=== PATIENT | male | born 1945 | race Caucasian/White ===

== ENCOUNTER 2019-02-02 08:00 | Day surgery (SDC) | payer MEDICARE, SELFPAY ==
[2018-09-20 11:37] VITALS: BMI 26.4
[2019-02-02 08:21] VITALS: BP 138/80; PULSE 86; RESP 16; TEMP 35.9; O2SAT 94; BMI 24.7
[2019-02-02] MEDS: Lactated Ringers 1,000 ML 100 ML IV (08:37)
--- NOTE | 2019-02-02 09:05 | H&P.OPEN ---
History of Present Illness Date of Admission: 02/02/19 The patient is a 73 year old M who presents for a colonoscopy. Patient had his last colonoscopy by Dr. Fitzpatrick in 2010. He was noted to have polyps at that time and it was recommended that he have a repeat colonoscopy in 5 years. He is 3 years overdue. He is not having any abdominal pains. He is moving his bowels without difficulty. Past Medical/Surgical History - Planned Operation Planned Operative Procedure/s: COLONOSCOPY Date of Operative Procedure: 02/02/19 Permit Signed: Yes S.O.S: No Is This Patient Having a Total Joint: No - Previous Hospitalizations/Surgeries HX Hospitalizations: No HX of Surgeries: 2006 PROSTATECTOMY. APPENDECTOMY. CRISTIAN CATARACTS Any Problems With Anesthesia: No You/Your Family Experience Fever (Hyperthermia) With Anes: No Cholinesterase deficiency: No - Cardiovascular Hx Chest Pain within Last 2 months: No Hx of Irregular Heartbeat and/or Afib: No Hx Heart Attack: No Hx Congestive Heart Failure: No Hx Rheumatic Fever: No Hx Hypertension: No Hx Internal Defibrillator: No Hx Pacemaker: No Hx Cardiac Catheterization: No Hx Cardiac Surgery/Stents/Etc.: No Hx Stress Test: No HX Edema: No Hx Pain in Legs when Walking/Leg Cramps: No - Respiratory Chronic Cough: No HX of Shortness of Breath: No Hoarseness: No Hx Chronic Obstructive Pulmonary Disease (COPD): No Hx Asthma: No Hx Emphysema: No Hx Sleep Apnea: No Hx Oxygen Use at Home: No Hx Respiratory Tract Infection/Cold (presently): No Do You Snore Loudly (louder than talking or can be heard): No Do You Often Feel Tired/ Fatigued/ Sleepy Dring Daytime?: No Has Anyone Observed You Stop Breathing During Sleep?: No Result (for STOP score): Negative Hx Smoking: No Smoking Status: Never smoker - Gastrointestinal Hx Gastroesophageal Reflux: Yes Controlled With Meds: Yes - PREVACID PRN Hx Gastrointestinal Disorders: No Hx Gastrointestinal Bleed: No Hx Ulcer: No Hx Hiatal Hernia: No Difficulty Chewing/Swallowing: No Recent Onset of Swallowing Problems: No Special diet followed at home: No Hx Unplanned Weight Loss of 20#: No HX Unplanned Weight Gain of 20#: No - Neurological Hx Seizures: No HX Syncope/Blackout Spells/Unconsciousness: No Hx CVA/Stroke: No Hx Transient Ischemic Attacks (TIA): No Hx Multiple Sclerosis: No Hx Parkinson's Disease: No Hx Head/Neck Injury: No Hx Headaches: No Hx Back Injury/Pain: Yes Recent Onset of Speech Difficulty: No Restless Legs: No Does patient have nerve stimulator: No - Blood Disorder Hx Leukemia: No Bleeding Tendencies: No Hx Deep Vein Thrombosis: No Hx High Cholesterol: No Blood Transmitted Disease: No Hx Hepatitis: No Hx Cirrhosis: No Hx Anemia: No Hx Blood Disorders: No - Genitourinary Hx Renal Disease: Yes - KIDNEY STONES - Musculoskeletal Hx Arthritis: Yes Hx Rheumatoid Arthritis: No Hx Gout: No Recent Onset of an Orthopedic Problem: No - Endocrine Hx Diabetes: No Thyroid Disease: No Hx Steroid Therapy: No - Psycho/Social Hx Substance Use: No Hx Alcohol Use: No Hx Anxiety: No Hx Depression: No Mental Illness: No Hx Dementia: No - Miscellaneous Hx Cancer: Yes - PROSTATE Recent Exposure to Contagious Disease: No Active MRSA: No Hx of C-Diff: No Any Loose Teeth: Yes - UPPER DENTURES Additional information pertinent to anesthesia:: HAS A HARD TIME HOLDING BLADDER Allergies No Known Allergies Allergy (Verified 02/01/19 11:29) - Discharge Is Pt Admitted From a Care Home, or a Retirement: No Who Could Help: [facility] After D/C, Where Do you Plan to Go: Return Home - From the PAT History Number of Risk Factors: 3 - Physical Exam General: Alert, Oriented x3 Lungs: Clear to auscultation Cardiovascular: Regular rate, Regular Rhythm, No murmurs Abdomen: Bowel Sounds Present, Soft, Non Tender, Non-Distended Vital Signs Temp Pulse Resp BP Pulse Ox 96.6 F L 86 16 138/80 H 94 02/02/19 08:21 02/02/19 08:21 02/02/19 08:21 02/02/19 08:21 02/02/19 08:21 Oxygen Delivery Method Room Air Weight: 162 lb 14.746 oz Body Mass Index (BMI) 24.7 Assessment/Plan Plan will be to perform a colonoscopy. Surgery Risks - Colonoscopy Risks Include but are not Limited To: Risks include but are not limited to: Bleeding, perforation requiring further surgery, inability to complete colonoscopy requiring barium enema.
[2019-02-02 09:30] VITALS: BP 103/73; BP 138/80; PULSE 89; RESP 18; TEMP 36.8; O2SAT 94
--- NOTE | 2019-02-02 09:30 | OP.ENDO_ITS ---
02/02/2019 Jose Carlos Lemus [address] [place] [address] Re : Colonoscopy procedure for Jonathan Barragan Dear Dr. Lemus This procedure was performed on Saturday, February 02, 2019. My impressions and recommendations are as follows: Impressions : - Non-bleeding internal hemorrhoids. - The examination was otherwise normal. - The examined portion of the ileum was normal. - No specimens collected. Recommendations : - Discharge patient to home. - Resume previous diet. - Continue present medications. - Repeat colonoscopy in 10 years for screening purposes. - Return to primary care physician at appointment to be scheduled. My findings are described in the full procedure note, which is enclosed. If I can be of further assistance, please feel free to contact me at Doctor phone number(s): , Fax: [phone], Work: . Sincerely, MD Luke Gardner MD 02/02/2019 9:30:24 AM This report has been signed electronically.
[2019-02-02 09:35] VITALS: BP 117/82; BP 138/80; PULSE 93; RESP 16; O2SAT 94
[2019-02-02 09:40] VITALS: BP 130/76; BP 138/80; PULSE 79; RESP 16; O2SAT 93
[2019-02-02 09:45] VITALS: BP 126/85; BP 138/80; PULSE 80; RESP 16; TEMP 36.8; O2SAT 99
[2019-02-02 10:10] VITALS: BP 138/80
== END 2019-02-02 10:20 | disposition home or self-care (01) ==
LOC: EN 08:00 → AC 08:01
PROVIDERS: Family Provider Family Medicine; PCP Family Medicine; Referring Provider Surgery; Visit Provider Surgery
PROC: 0DJD8ZZ Inspection of Lower Intestinal Tract, Via Natural or Artificial Opening Endoscopic (ICD-10-PCS; CPT 45378; principal; 2019-02-02 09:10)
DX: Z86.010 Personal history of colon polyps (principal); K64.8 Other hemorrhoids; K21.9 Gastro-esophageal reflux disease without esophagitis; M19.90 Unspecified osteoarthritis, unspecified site; C61 Malignant neoplasm of prostate; Z87.442 Personal history of urinary calculi; Z79.899 Other long term (current) drug therapy
CPT/HCPCS: G0105; J7120